=== PATIENT | female | born 1930 | race Caucasian/White ===

== ENCOUNTER 2017-07-16 13:53 | Inpatient (IN) ==
--- NOTE | 2017-07-16 14:56 | Emergency Department Note ---
Herb Razo Manpreet, am scribing for, and in the presence of, Vargas Sebastian MD 14:48. Romulo Razo Charles R, MD, personally performed the services described in this documentation, ascribed by Mike Estevez in my presence, and it is both accurate and complete [phone] . Arrival - Arrival Chief Complaint: Shortness of Breath Stated Complaint: shortness of breath ED Nursing Triage Note: Transfer from [place] for further evaluation of chronic obstructive pulmonary exacerbation and A-fib. c/o shortness of breath onset 2 days ago. +pedal edema. Mode of Arrival: Stretcher Limitations: No Limitations Source: Patient - History of Present Illness HPI Narrative: Pt is a 87 y/o female who is transferred from [place] for further evaluation of COPD exacerbation and A-fib. Pt was in the hospital for the COPD 2 weeks at [place] and states she has not gotten better. Pt also reports of neuropathy in [facility] and has difficulty walking. Pt states she had diarrhea a week ago and caused her to become weak. Pt states she feels like her heart is "jumping back and forth." Pt states she quit smoking cigarettes when she got out of the hospital two weeks ago. No other pains/complaints reproted to the ED. Onset (ago): day(s) (2 days ago) Consistency: constant Severity: moderate Date of Last Menstrual Period: PM Allergies/Adverse Reactions: Allergies Allergy/AdvReac Type Severity Reaction Status Date / Time ciprofloxacin [From Cipro] AdvReac Nausea Verified 07/16/17 14:11 Home Medications: Home Medications Medication Instructions Recorded Confirmed Type Albuterol Sulfate [Ventolin HFA] 2 puff INH Q4H PRN 07/16/17 History Budesonide/Formoterol 160-4.5 2 puff INH BID 07/16/17 History [Symbicort 160-4.5] Citalopram [CeleXA] 20 mg PO DAILY 07/16/17 History Dexlansoprazole [Dexilant] 60 mg PO QAM 07/16/17 History Diphenoxylate/Atrop 2.5-0.025 1 - 2 tablet PO DAILY PRN 07/16/17 History [Lomotil Tab] Furosemide [Furosemide] 20 mg PO DAILY 07/16/17 History Gabapentin [Gabapentin] 600 mg PO QID 07/16/17 History Hydrocodone/Acetaminophen 1 tablet PO BID 07/16/17 History [Hydrocodon-Acetaminophn 10-325] Methyldopa [Methyldopa] 250 mg PO BID 07/16/17 History Potassium Chloride 20 meq PO DAILY 07/16/17 History Ropinirole HCl [Ropinirole HCl] 0.25 mg PO BEDTIME 07/16/17 History Tramadol HCl [Tramadol Tab] 50 mg PO BID PRN 07/16/17 History clonazePAM [Clonazepam] 0.5 mg PO BEDTIME 07/16/17 History Review of System - Review of System 12 point system: reviewed and no additional remarkable complaints except as stated - Review of System Constitutional: Absent: chills, diaphoresis, fever Respiratory: Present: respiratory distress. Absent: cough, wheezing Cardiovascular: Present: palpitations ("Heart jumping back and forth"). Absent : chest pain Gastrointestinal: Absent: abdominal pain, nausea, vomiting, diarrhea Genitourinary female: Absent: dysuria Musculoskeletal: Absent: arm pain, back pain Neurological: Absent: headache, weakness Medical,Surgical,& Family Hx - Social History Smoking Status: Unknown if ever smoked Frequency of Alcohol Use: None Type of Drug Use: None Exam Vital Signs: Vital Signs Temperature 97.9 F 07/16/17 13:53 Pulse Rate 104 H 07/16/17 13:53 Respiratory Rate 20 07/16/17 13:53 Blood Pressure 104/66 07/16/17 13:53 O2 Sat by Pulse Oximetry 90 L 07/16/17 13:53 - General General appearance: alert - Head Head exam: Present: atraumatic, normocephalic, normal inspection - Eye Eye exam: Present: normal appearance, PERRL, EOMI - ENT ENT exam: Present: normal exam, normal oropharynx, mucous membranes moist, TM's normal bilaterally - Neck Neck exam: Present: normal inspection, full ROM, trachea midline. Absent: tenderness - Chest Chest inspection: Present: normal inspection, symmetric chest wall rise. Absent : tenderness - Respiratory Respiratory exam: Present: rhonchi (Bilat rhonchi), wheezes (Expiratory wheezes) , other (Poor effort). Absent: normal lung sounds bilaterally, accessory muscle use, respiratory distress - Cardiovascular Cardiovascular exam: Present: regular rate, normal rhythm, normal heart sounds. Absent: murmur, rubs, gallop - Abdominal Exam Abdominal exam: Present: soft, normal bowel sounds. Absent: distention, tenderness, guarding - Extremities Exam Extremities exam: Present: normal inspection, full ROM. Absent: tenderness - Back Exam Back exam: Present: normal inspection, full ROM - Neurological Exam Neurological exam: Present: alert, oriented X3, CN II-XII intact, reflexes normal - Psychiatric Psychiatric exam: Present: normal affect, normal mood - Skin Skin exam: Present: warm, dry, intact, normal color. Absent: pallor Course - Consultations Consultation #1: Hospitalist will admit patient Time: 14:54 Disposition Clinical Impression: Congestive heart failure, Acute exacerbation of chronic obstructive airways disease, Paroxysmal atrial fibrillation Case discussed with: patient, patient's family Disposition: Still a Patient Condition: Stable Time of Disposition: 14:55
[2017-07-16] MEDS ORDERED: ONDANSETRON 4 MG/2 ML VIAL IV PRN (15:31)
[2017-07-16] MEDS ORDERED: MORPHINE 2 MG/1 ML SYRINGE IV PRN (15:31)
[2017-07-16] MEDS ORDERED: ACETAMINOPHEN 325 MG TABLET PO PRN (15:31)
--- NOTE | 2017-07-16 15:37 | EKG Report ---
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
--- NOTE | 2017-07-16 15:42 | Hospitalist History & Physical ---
Assessment and Plan - Time spent with patient Time spent with patient: Greater than 30 minutes (1) Congestive heart failure Status: Acute Assessment and plan: Admit 07/16/17 (transferred from [facility]) BNP 3676 - start diuretics and ware Patient has had diarrhea x1 week - recent antibiotics - stool for c-diff New Onset AFib (HR 90-100s) CHF Exacerbation - Cardiology Consult COPD Exacerbation - she denies home o2 use: Pulmonary Consult Elevated Troponin (slight 0.008) - serial troponin Repeat EKG in a.m. Repeat A.M. Labs COPD Exac: Duonebs, steroids q 12, Meropenem Discussed with Dr Garcia for further recommendations of care. Current Visit: Yes (2) Acute exacerbation of chronic obstructive airways disease Status: Acute Current Visit: Yes (3) Paroxysmal atrial fibrillation Status: Acute Current Visit: Yes History of Present Illness Chief complaint: SOB, New Onset AFib, COPD exac, CHF exac History of present illness: Ms. Mercedes is a 87 year old white female w/PMHx of COPD, Anemia, CKD (stage III), neuropathy, HTN, CHF presented to the ED as a transfer from [facility] for further evaluation of New Onset AFib (rate 90s-100s), CHF exacerbation, COPD exacerbation and c/o shortness of breath and right sided pain with taking a deep breath. She reports increased weakness and diarrhea x1 week (this occurred after being discharged home from hospital on an antibiotic/ unsure of name). She denies nausea, vomiting, fever, or chills. IN [place] ED: she received Lovenox 60mg, duoneb and steroids 125mg. LABS: WBC 9.06, Creatinine 1.9, GFR 33, Troponin 0.008, BNP 3676. She is unsure of Last GI scope but has a large Hiatal Hernia. She reports quit smoking over a month ago. She denies alcohol or drug use. SurgHx: Cholecystectomy, Hysterectomy, Left hip Fracture repair. PCP: Dr Harpreet Garcia prospecting observer After discussion with Dr Sebastian in the Ed and Dr Garcia with Hospital Medicine, it was agreed to admit patient for further evaluation and treatment. She is a resident of [facility]. She wishes for her code status to be: DNR and family at bedside agreed with discussion and code status. Home Medications Medication Instructions Recorded Confirmed Type Albuterol Sulfate [Ventolin HFA] 2 puff INH Q4H PRN 07/16/17 History Budesonide/Formoterol 160-4.5 2 puff INH BID 07/16/17 History [Symbicort 160-4.5] Citalopram [CeleXA] 20 mg PO DAILY 07/16/17 History Dexlansoprazole [Dexilant] 60 mg PO QAM 07/16/17 History Diphenoxylate/Atrop 2.5-0.025 1 - 2 tablet PO DAILY PRN 07/16/17 History [Lomotil Tab] Furosemide [Furosemide] 20 mg PO DAILY 07/16/17 History Gabapentin [Gabapentin] 600 mg PO QID 07/16/17 History Hydrocodone/Acetaminophen 1 tablet PO BID 07/16/17 History [Hydrocodon-Acetaminophn 10-325] Methyldopa [Methyldopa] 250 mg PO BID 07/16/17 History Potassium Chloride 20 meq PO DAILY 07/16/17 History Ropinirole HCl [Ropinirole HCl] 0.25 mg PO BEDTIME 07/16/17 History Tramadol HCl [Tramadol Tab] 50 mg PO BID PRN 07/16/17 History clonazePAM [Clonazepam] 0.5 mg PO BEDTIME 07/16/17 History Allergies Allergy/AdvReac Type Severity Reaction Status Date / Time ciprofloxacin [From Cipro] AdvReac Nausea Verified 07/16/17 14:11 Medical,Surgical,& Family Hx - Medical History Cardio: History of: Cardiac Dysrhythmia (A-fib), CHF, Hypertension Psychological: History of: Depression Neurology: History of: Peripheral Neuropathy Respiratory: History of: COPD Gastrointestinal: History of: GI Problems (Hiatal Hernia) - Surgical History HEENT Surgeries: Surgical HX of: Eye Surgery Abdominal Surgeries: Surgical HX of: Cholecystectomy - Social History Smoking Status: Former smoker (quit over a month ago) Frequency of Alcohol Use: None Type of Drug Use: None Marital Status: Lives With:: [facility] Functional capacity: wheelchair bound (electric wheelchair; too weak and neuropathy too painful for self-ambulation) 12 point system: reviewed and no additional remarkable complaints except as stated - Constitutional Constitutional: Absent: chills, fever(s), headache(s) - Cardiovascular Cardiovascular: Present: dyspnea, dyspnea on exertion. Absent: edema - Gastrointestinal Gastrointestinal: Present: diarrhea (since being placed on unknown antibiotic about a week ago). Absent: nausea, vomiting Exam - Constitutional Vitals: Period Temp Pulse Resp BP Sys/Arriola Pulse Ox Last 24 Hr 97.9 F-97.9 F 96-111 18-20 104-122/58-75 90-96 General appearance: normal weight, no acute distress - Head Head exam: Present: normal inspection, normocephalic - Eye Eye exam: Present: EOMI Pupils: Present: SYLVIA - Neck Neck exam: Present: normal inspection. Absent: thyromegaly - Respiratory Respiratory exam: Present: rhonchi, wheezes - Cardiovascular Cardiovascular exam: Present: irregular rhythm (afib - new onset (HR 90-100s)) - Extremities Exam Extremities exam: Present: normal inspection, full ROM, other (painful neuropathy; with touch sensation). Absent: edema - Neurological Exam Neurological exam: Present: alert, oriented X3, CN II-XII intact - Psychiatric Psychiatric exam: Present: normal affect, normal mood. Absent: agitated, anxious - Skin Skin exam: Present: normal color, warm, dry Results - Labs Lab Results: I have reviewed the past 24 hour labs Labs: Labs performed at [facility] and I requested records to be scanned into the system for access for review. Significant: BNP 3676 Troponin 0.008 WBC 9.06 Creatinine 1.9 GFR 33
[2017-07-16] MEDS ORDERED: DIPHENOXYLATE/ATROPINE 2.5-0.025 MG TABLET PO PRN (16:39)
[2017-07-16] MEDS ORDERED: BUDESONIDE/FORMOTEROL 160-4.5 INHALER 6 GM INH PRN (16:39)
[2017-07-16] MEDS ORDERED: ZALEPLON 5 MG CAPSULE PO PRN (16:39)
[2017-07-16] MEDS ORDERED: ALBUTEROL 2.5 MG/3 ML NEB RESP TX PRN (16:39)
[2017-07-16] MEDS: methylPREDNISolone SOD SUC 40 MG/1 ML VIAL IV SCH (18:23)
[2017-07-16] MEDS: GABAPENTIN 600 MG TABLET PO SCH ×2 (18:23→21:50)
[2017-07-16] MEDS: ALBUTEROL/IPRATROPIUM 3 ML NEB RESP TX SCH ×2 (19:52→23:59)
[2017-07-16] MEDS: FUROSEMIDE 40 MG/4 ML VIAL IV SCH (21:47)
[2017-07-16] MEDS: METHYLDOPA 250 MG TABLET PO SCH (21:50)
[2017-07-16] MEDS: MEROPENEM 500 MG in SODIUM CHLORIDE 0.9% 50 ML IV SCH (21:50)
[2017-07-16] MEDS: rOPINIRole 0.25 MG TABLET PO SCH (21:50)
[2017-07-16] MEDS: clonazePAM 0.5 MG TABLET PO SCH (21:50)
[2017-07-16] MEDS: NYSTATIN CREAM 15 GM TUBE TOP SCH (22:34)
[2017-07-16] MEDS: ENOXAPARIN 60 MG/0.6 ML SYRINGE SUBCUT SCH (22:35)
[2017-07-17] MEDS: methylPREDNISolone SOD SUC 40 MG/1 ML VIAL IV SCH ×2 (04:42→16:37)
[2017-07-17 04:50] LABS: Hemoglobin 11.7 GM/DL (12.0-16.0); Immature Granulocytes % 0.5 %; Immature Granulocytes Absolute 0.03 #; Lymphocytes # 0.3 10*3/uL (1.4-4.0); Lymphocytes % 5.2 % (21.3-54.2); Mean Corpuscular HGB Conc 31.6 GM/DL (32-36); Mean Corpuscular Hemoglobin 26 PG (27-34); Mean Corpuscular Volume 82.4 FL (87-102); Mean Platelet Volume 10.4 FL (9.6-12.0); Monocytes # 0.1 10*3/uL (0.11-0.8); Monocytes % 1.3 % (1.7-12.7); Neutrophils # 5.5 10*3/uL (1.4-7.4); Platelet Count 249 T/CUMM (130-400); Red Blood Count 4.49 MC/CUMM (3.8-5.5); Red Cell Distribution Width 28.5 % (9.3-17.3); White Blood Count 5.9 T/CUMM (4-12)
[2017-07-17 05:20] LABS: Calcium 8.4 MG/DL (8.5-10.1); Magnesium 2.3 MG/DL (1.8-2.4); Osmolality,Calculated 283.7 MOS/KG (273-304); Potassium 4.4 MMOL/L (3.5-5.1)
[2017-07-17 05:32] LABS: Band Neutrophils 1 % (0-10); Lymphocytes 6 % (20-55); Platelet Estimate Normal; Segmented Neutrophils 90 % (50-85); Total Cells Counted 100
[2017-07-17 05:47] LABS: Risk Ratio 2.42; Thyroid Stimulating Hormone 0.346 uIU/ml (0.358-3.74)
[2017-07-17] MEDS: MEROPENEM 500 MG in SODIUM CHLORIDE 0.9% 50 ML IV SCH ×2 (06:03→18:15)
[2017-07-17] MEDS: ALBUTEROL/IPRATROPIUM 3 ML NEB RESP TX SCH ×3 (07:28→19:47)
--- NOTE | 2017-07-17 07:43 | EKG Report ---
Stationary ECG Study [facility] Test Date: 07/17/2017 7:41:59 AM Pat Name: ELVA ZUNIGA Department: Room: 263 Gender: F Clerk Rating: STANISLAV : 1930 Requested by: Edie Bernal Order Number: [id number] Reading MD: SAY SERRA Intervals [place] Rate: 81 P: 999 [place]: 0 QRS: -44 QRSD: 156 T: -14 QT: 424 QTc: 461 Interpretive Statements ATRIAL FIBRILLATION RIGHT BUNDLE BRANCH BLOCK NON-SPECFIC ST-T CHANGES Electronically Signed On 07-18-17 18:17:51 CDT by SAY SERRA [email or web address]
--- NOTE | 2017-07-17 08:06 | Physician Query Form ---
CLICK EDIT DOCUMENT TO SELECT QUERY ANSWER --> OK --> SIGN Lary Franco RN, CCDS Certified Clinical Second Cutter W) [phone] (f) [phone] [email or web address] PROVIDERS: Make your selection(s) from the choices in EACH section by typing an "x" and enter comments in the comment section. Please use your independent medical judgment in providing your response. This request does not imply that any particular answer is desired or expected. CLINICAL INDICATORS: (Providers should not edit this section) The medical record indicates that the patient was admitted with congestive heart failure (exacerbation), BNP of 498#, and the patient was treated with IV Lasix. Please provide further specificity regarding CHF. ACUITY: (X ) Acute ( ) Chronic ( ) Acute on Chronic ( ) Clinically unable to determine TYPE: ( ) Systolic (HFrEF - heart failure with reduced systolic function/EF) ( X) Diastolic (HFpEF - heart failure with preserved systolic function/EF) ( ) Combined Systolic/Diastolic ( ) Other, please specify: ( ) Clinically unable to determine ( ) Past Medical History of Systolic CHF ( ) Past Medical History of Diastolic CHF ( ) Clinically unable to determine COMMENTS: PLEASE ALSO DOCUMENT RESPONSE IN PROGRESS NOTES AND/OR DISCHARGE SUMMARY Use of terms such as suspected, likely, or probable (associated with a specific diagnosis that is being evaluated, monitored, or treated as if it exists) are acceptable and can be restated in the discharge summary if not ruled out. MTDD
[2017-07-17] MEDS: GABAPENTIN 600 MG TABLET PO SCH ×4 (08:40→20:39)
[2017-07-17] MEDS: METHYLDOPA 250 MG TABLET PO SCH ×2 (08:40→20:39)
[2017-07-17] MEDS: PANTOPRAZOLE 40 MG TABLET PO SCH ×2 (08:41→08:42)
[2017-07-17] MEDS: CITALOPRAM 20 MG TABLET PO SCH (08:41)
[2017-07-17] MEDS: traMADol 50 MG TABLET PO PRN ×2 (08:41→16:42)
[2017-07-17] MEDS: FUROSEMIDE 40 MG/4 ML VIAL IV SCH ×2 (08:42→16:40)
[2017-07-17] MEDS: NYSTATIN CREAM 15 GM TUBE TOP SCH ×2 (08:49→20:40)
--- NOTE | 2017-07-17 08:52 | Cardiology Consult Note ---
Assessment and Plan - Time spent with patient Time spent with patient: Greater than 30 minutes (1) Atrial fibrillation, new onset Status: Acute Assessment and plan: SEE PLAN OF CARE LISTED BELOW. Current Visit: Yes (2) Acute exacerbation of chronic obstructive airways disease Status: Acute Assessment and plan: SEE PLAN OF CARE LISTED BELOW. Current Visit: Yes (3) Hypertension Status: Chronic Assessment and plan: SEE PLAN OF CARE LISTED BELOW. Current Visit: Yes (4) Neuropathy Status: Chronic Assessment and plan: SEE PLAN OF CARE LISTED BELOW. Current Visit: Yes (5) Debility Status: Chronic Assessment and plan: SEE PLAN OF CARE LISTED BELOW. Current Visit: Yes (6) Congestive heart failure Status: Chronic Assessment and plan: SEE PLAN OF CARE LISTED BELOW. Current Visit: No Qualifiers: Congestive heart failure type: unspecified congestive heart failure type Congestive heart failure chronicity: chronic Qualified Code(s): I50.9 - Heart failure, unspecified (7) Former smoker Status: Chronic Assessment and plan: SEE PLAN OF CARE LISTED BELOW. Current Visit: Yes (8) Chronic kidney disease (CKD) Status: Chronic Assessment and plan: SEE PLAN OF CARE LISTED BELOW. Current Visit: Yes Qualifiers: Chronic kidney disease stage: stage 3 (moderate) Qualified Code(s): N18.3 - Chronic kidney disease, stage 3 (moderate) History of Present Illness - Data of Consult Patient: new to practice Consult date: 07/17/17 Requesting Physician: Edie Bernal Primary care physician: Jeffrey Tran - Consult Narrative Reason for consult: new onset afib. 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 Tran Ms. Mercedes is a 87 year old female without known history of coronary artery disease, not routinely followed by cardiology. Resident of [facility]. Cardiac risk factors include: Hypertension, advanced age, former smoker (quit 1 month ago) and sedentary lifestyle. No family history of CAD. Past medical history includes: Cardiomegaly, COPD and neuropathy. Patient reports that she is unable to ambulate. She uses electric wheelchair. Patient has never been seen by carriage feeder in the past. Denies previous stress testing or cardiac catheterization. Patient presented to [facility] with complaints of shortness of breath over the past 2-3 days. She was diagnosed with pneumonia approximately 1 month ago and was hospitalized for 10 days. This has been slow to improve. She has right-sided chest pain that occurs when she takes a deep breath. She has been having this ever since she was diagnosed with pneumonia. This is slowly improving. She does have chronic dyspnea. However, over the last 2-3 days this has been significantly worse. She does have a history of COPD. Does not use home oxygen. Her family at bedside would like for case management to attempt to set this up at discharge. She is also been experiencing heart racing/palpitations over the last 2-3 days. She has had these in the past just not as severe. Never been diagnosed with arrhythmia. Denies fever, chills, nausea, vomiting, abdominal pain, orthopnea, PND and lower extremity swelling. Denies lightheadedness, syncope and frequent falls. She is unable to ambulate and uses electric wheelchair. She is a resident at the [facility] and they felt that she needed to be further evaluated in the emergency department. Upon arrival to the ER, she was noted to be in atrial fibrillation. This is a new diagnosis for her. Therapeutic Lovenox was initiated for stroke prevention. She has been admitted under hospital medicine service. Cardiology consulted for further assistance. Of note, I spent greater than 15 minutes discussing risk and benefits of anticoagulation. She is without contraindications. Denies history of GI bleeding and frequent falls. Patient was seen and examined on the telemetry unit. Family is at bedside. She is without complaints this morning. She reports that she feels much better. She is reasonably well rate controlled this morning. Asymptomatic with her atrial fibrillation. I have added cardioselective beta blockade to assist with rate control as patient does have acute COPD exacerbation. Chads vasc score 5. Patient is currently being anticoagulated with therapeutic Lovenox. This will be continued. I have thoroughly discussed anticoagulation options with the patient and family as she will need chronic anticoagulation at discharge. She is without high bleeding risk. I will further discuss with Dr. Brambila and await his additional recommendations. She is lying flat in bed this morning. No orthopnea. BNP mildly elevated at 498 in the setting of renal insufficiency, creatinine 1.6. I will order chest x-ray and echocardiogram. Agree with IV Lasix. Monitor renal function closely as she does have renal insufficiency. Strict I's and O's and daily weights. Further recommendations to follow per Dr. Brambila. IMPRESSION AND PLAN: 1. NEW ONSET ATRIAL FIBRILLATION - New diagnosis. Patient is reasonably well rate controlled this morning. Asymptomatic. I have added cardioselective beta blockade to assist with rate control as patient does have acute COPD exacerbation. Chads vasc score 5. Patient is currently being anticoagulated with therapeutic Lovenox. This will be continued. I have thoroughly discussed anticoagulation options with the patient and family as she will need chronic anticoagulation at discharge. She is without high bleeding risk. We will check daily BMP and optimize electrolytes. TSH 0.346. Free T4 pending. I will further discuss with Dr. Brambila and await his additional recommendations. 2. ACUTE ON CHRONIC COPD EXACERBATION - 3. HYPERTENSION - Clinically stable. I have added cardioselective beta- blockade to assist with rate control. Monitor blood pressure and adjust accordingly. 4. SEVERE NEUROPATHY - Continue gabapentin. 5. FORMER SMOKER - Reports quitting smoking 1 month ago. 6. DEBILITY - Chronic, stable. Unable to ambulate. He uses electric wheelchair. 7. HISTORY OF CHF - BNP mildly elevated at 498 in the setting of renal insufficiency, creatinine 1.6. I will order chest x-ray and echocardiogram. Agree with IV Lasix. Strict I's and O's and daily weights. 8. CHRONIC KIDNEY DISEASE, STAGE 3 - Daily BMP. CC: Tom Garcia MD - Home Medications and Allergies Home Medications: Home Medications Medication Instructions Recorded Confirmed Type Albuterol Sulfate [Ventolin HFA] 2 puff INH Q4H PRN 07/16/17 07/16/17 History Budesonide/Formoterol 160-4.5 2 puff INH BID PRN 07/16/17 07/16/17 History [Symbicort 160-4.5] Citalopram [CeleXA] 20 mg PO QAM 07/16/17 07/16/17 History Dexlansoprazole [Dexilant] 60 mg PO QAM 07/16/17 07/16/17 History Diphenoxylate/Atrop 2.5-0.025 1 - 2 tablet PO DAILY PRN 07/16/17 07/16/17 History [Lomotil Tab] Furosemide [Furosemide] 20 mg PO QAM 07/16/17 07/16/17 History Gabapentin [Gabapentin] 600 mg PO QID 07/16/17 07/16/17 History Hydrocodone/Acetaminophen 1 tablet PO BID PRN 07/16/17 07/16/17 History [Hydrocodon-Acetaminophn 10-325] Methyldopa [Methyldopa] 250 mg PO BID 07/16/17 07/16/17 History Pantoprazole Tab [Protonix Tab] 40 mg PO QAM 07/16/17 07/16/17 History Potassium Chloride 20 meq PO DAILY 07/16/17 07/16/17 History Ropinirole HCl [Ropinirole HCl] 0.25 mg PO BEDTIME 07/16/17 07/16/17 History Tramadol HCl [Tramadol Tab] 50 mg PO BID PRN 07/16/17 07/16/17 History clonazePAM [Clonazepam] 0.5 mg PO BEDTIME 07/16/17 07/16/17 History predniSONE TAB [PredniSONE] 20 mg PO QAM 07/16/17 07/16/17 History Allergies/Adverse Reactions: Allergies Allergy/AdvReac Type Severity Reaction Status Date / Time ciprofloxacin [From Cipro] AdvReac Nausea Verified 07/16/17 14:11 - Constitutional Constitutional: Present: as per HPI, fatigue, lethargy, malaise, weakness. Absent: chills, fever(s), frequent falls, weight gain, weight loss - Cardiovascular Cardiovascular: Present: chest pain at rest (With deep breath, recent diagnosis of pneumonia 1 month ago.), dyspnea, palpitations. Absent: chest pain with activity, diaphoresis, edema, radiating jaw, neck or arm pain, lightheadedness, orthopnea, PND - Respiratory Respiratory: Present: as per HPI, cough, dyspnea, wheezing, pain on inspiration. Absent: hemoptysis, dyspnea on exertion, snoring, change in phlegm color - Gastrointestinal Gastrointestinal: Present: as per HPI. Absent: abdominal pain, change in bowel habits, coffee ground emesis, dyspepsia, dysphagia, heartburn, hematemesis, hematochezia, melena, nausea, vomiting - Neurological Neurological: Present: as per HPI, abnormal gait. Absent: abnormal speech, behavioral changes, dizziness, frequent falls, headache(s), syncope - Hematologic/Lymphatic Hematologic/Lymphatic: Present: as per HPI. Absent: easy bleeding, easy bruising Medical,Surgical,& Family Hx - Medical History Cardio: History of: CHF, Hypertension Psychological: History of: Depression Neurology: History of: Peripheral Neuropathy Respiratory: History of: COPD Gastrointestinal: History of: GI Problems (Hiatal Hernia) No history of: Gastrointestinal Bleed Musculoskeletal: History of: Musculoskeletal Problems (Neuropathy) - Surgical History HEENT Surgeries: Surgical HX of: Eye Surgery Abdominal Surgeries: Surgical HX of: Cholecystectomy - Social History Smoking Status: Former smoker Frequency of Alcohol Use: None Type of Drug Use: None Marital Status: Lives With:: BEE HIVE Functional capacity: wheelchair bound Physical Examination Vital Signs Temp Pulse Resp BP Pulse Ox 97.9 F 104 H 20 104/66 90 L 07/16/17 13:53 07/16/17 13:53 07/16/17 13:53 07/16/17 13:53 07/16/17 13:53 Exam: General: Appears well with no apparent distress. Pleasant and cooperative. Appears comfortable. HEENT: PERRL, normocephalic, atraumatic. Mucous membranes moist. No jaundice noted. Conjunctiva moist and clear, sclerae anicteric Neck: No JVD/HJR, no thyromegaly or lymphadenopathy noted. Cardiac: Irregular rate and rhythm. No murmur rub or gallop. Lungs: Coarse lung sounds with rhonchi and wheezing throughout. Oxygen via nasal cannula. Abdomen: Soft, bowel sounds normoactive. Nontender and nondistended. No abdominal bruit or thrill noted. No masses noted. Extremities: No clubbing, cyanosis noted. No edema noted. Upper extremity pulses 2+. Lower extremity pulses 2+. Capillary refill less than 3 seconds. Skin: No unusual lesions or rashes. No skin breakdown appreciated. Neuro: Awake, alert and oriented 3. Moves all extremities well without hemiparesis or paralysis. Result/EKG - Labs CBC & BMP: 07/17/17 03:26 07/17/17 03:26 Lab Results: I have reviewed the past 24 hour labs Labs: Laboratory Results - last 24 hr 07/17/17 07/17/17 07/17/17 03:26 03:26 03:26 WBC 5.9 RBC 4.49 Hgb 11.7 L Hct 37.0 MCV 82.4 L MCH 26 L MCHC 31.6 L RDW 28.5 H Plt Count 249 MPV 10.4 Neut % (Auto) 93.0 H Lymph % (Auto) 5.2 L Keith % (Auto) 1.3 L Eos % (Auto) 0.0 Baso % (Auto) 0.0 Neut # (Auto) 5.5 Lymph # (Auto) 0.3 L Keith # (Auto) 0.1 L Eos # (Auto) 0.0 Baso # (Auto) 0.0 Total Counted 100 Immature Gran % 0.5 Nucleated RBC % 0.0 Immature Gran # 0.03 Segmented Neutrophils 90 H Band Neutrophils 1 Lymphocytes 6 L Monocytes 3 Nucleated RBCs # 0.00 Platelet Estimate Normal Immature Plt Fraction 0.0 Sodium 138 Potassium 4.4 Chloride 100 Carbon Dioxide 29 Anion Gap 13.4 BUN 22 H Creatinine 1.60 H GFR Calculation 28 BUN/Creatinine Ratio 13.00 Glucose 198 H Hemoglobin A1c Calculated Osmolality 283.7 Calcium 8.4 L Magnesium 2.3 B-Natriuretic Peptide 498 H Triglycerides Cholesterol LDL Cholesterol VLDL Cholesterol HDL Cholesterol Heart Disease Risk Ratio TSH 3rd Generation 07/17/17 07/17/17 03:26 03:26 WBC RBC Hgb Hct MCV MCH MCHC RDW Plt Count MPV Neut % (Auto) Lymph % (Auto) Keith % (Auto) Eos % (Auto) Baso % (Auto) Neut # (Auto) Lymph # (Auto) Keith # (Auto) Eos # (Auto) Baso # (Auto) Total Counted Immature Gran % Nucleated RBC % Immature Gran # Segmented Neutrophils Band Neutrophils Lymphocytes Monocytes Nucleated RBCs # Platelet Estimate Immature Plt Fraction Sodium Potassium Chloride Carbon Dioxide Anion Gap BUN Creatinine GFR Calculation BUN/Creatinine Ratio Glucose Hemoglobin A1c 5.2 Calculated Osmolality Calcium Magnesium B-Natriuretic Peptide Triglycerides 75 Cholesterol 138 LDL Cholesterol 71.0 VLDL Cholesterol 15.0 HDL Cholesterol 57 Heart Disease Risk Ratio 2.42 TSH 3rd Generation 0.346 L Specialty Discharge - Follow Up or Referrals
[2017-07-17] MEDS ORDERED: PANTOPRAZOLE 40 MG TABLET PO SCH (09:00)
[2017-07-17] MEDS: NEBIVOLOL 10 MG TABLET PO SCH (10:17)
[2017-07-17] MEDS: ENOXAPARIN 60 MG/0.6 ML SYRINGE SUBCUT SCH (10:17)
--- NOTE | 2017-07-17 10:27 | XRay Report ---
XR chest 1V portable Indication: Shortness of breath Comparison: 16 July 2017 Findings: The heart and mediastinum are stable in size and configuration. Hiatal hernia is present, similar to previous study The pulmonary vascularity is normal in caliber. No lung infiltrates, effusions, pneumothorax or other abnormality is demonstrated. Impression: No acute findings or significant changes. PROCEDURE INTERPRETED AT [facility] DEPARTMENT OF RADIOLOGY Final Report Signed by: Dr. Jarrell Cobian
--- NOTE | 2017-07-17 11:00 | EKG Report ---
Stationary ECG Study 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
--- NOTE | 2017-07-17 11:29 | ECHO Report ---
Aleksandra Mercedes Exam Date: 07/17/2017 09:36 Referring Physician: Technologist: Sera Bass Age: 87 Ht (in): 63 Wt (lb): 139 Gender: F Exam Location: [facility] Echo Indications: CHF, paroxysmal, COPD, A fib BP: 111 / 60 HR: 94 Rhythm: Sinus Technical Quality: IMPRESSIONS Technically adequate study 1-2+ left atrial enlargement 1+ concentric LVH Normal LV systolic function with ejection fraction estimated 65% without wall motion normality 1+ aortic, mitral, and tricuspid regurgitation with RVSP 25 mmHg plus RAP Irregular rhythm noted MEASUREMENTS (Male / Female) Normal Values 2D ECHO LV Diastolic Diameter PLAX 3.2 cm 4.2 - 5.9 / 3.9 - 5.3 cm LV Systolic Diameter PLAX 2.2 cm LV Fractional Shortening PLAX 32.0 % IVS Diastolic Thickness 1.1 cm 0.6 - 1.0 / 0.6 - 0.9 cm LVPW Diastolic Thickness 1.1 cm 0.6 - 1.0 / 0.6 - 0.9 cm RV Internal Dim ED PLAX 1.8 cm Aortic Root Diameter 2.3 cm LA Systolic Diameter LX 4.5 cm 3.0 - 4.0 / 2.7 - 3.8 cm DOPPLER TR Peak Velocity 252.0 cm/s TR Peak Gradient 25.4 mmHg FINDINGS Left Ventricle Normal left ventricular cavity size. Mild concentric left ventricular hypertrophy. Left ventricular ejection fraction is estimated a Right Ventricle Normal right ventricular size. Right Atrium Normal right atrial size. Left Atrium Moderately increased left atrial diameter. Mitral Valve Mildly thickened mitral valve with mild mitral regurgitation. Aortic Valve Mild aortic valve sclerosis without stenosis. Trace aortic valve regurgitation. Tricuspid Valve Morphologically normal tricuspid valve. Trace to mild tricuspid valve regurgitation. Tricuspid regurgitation velocities suggest a PAP of 25.4 mmHg + RAP. Pulmonic Valve Morphologically normal pulmonic valve. Pericardium No pericardial effusion. Aorta Normal size aortic root and proximal ascending aorta. Richmond Brambila (Electronically Signed) Final Date: 17 July 2017 11:27
[2017-07-17] MEDS: APIXABAN 2.5 MG TABLET PO SCH ×2 (13:53→20:39)
--- NOTE | 2017-07-17 14:38 | Hospitalist Progress Note ---
Assessment and Plan (1) Acute exacerbation of chronic obstructive airways disease Status: Acute Assessment and plan: The patient will continue treatment of COPD with IV antibiotics, inhaled beta agonist nebulized breathing therapy, and moderate dose IV steroid. Echocardiogram reveals preserved ejection fraction. The patient is now on Eliquis. I anticipate discharge home tomorrow. I reviewed the patient's plan of care with her self and her son at the bedside. Current Visit: Yes (2) Atrial fibrillation, new onset Status: Acute Current Visit: Yes Hospitalist: Subjective Interval history: Ms. Mercedes has less shortness of breath and less chest congestion today. Heart rate has better control. The patient is being treated for COPD exacerbation with IV antibiotics and inhaled beta agonist nebulized therapy and moderate dose steroid. The patient's atrial fibrillation is new onset and is being treated with rate control and anticoagulation. The patient is improving incrementally and I anticipate she will be ready for discharge home tomorrow. Exam - Constitutional Vitals: Period Temp Pulse Resp BP Sys/Arriola Pulse Ox Last 24 Hr 96.7 F-98.5 F 72-113 16-21 101-133/57-78 95-100 General appearance: mild distress - Respiratory Respiratory exam: Present: prolonged expiratory phase - Cardiovascular Cardiovascular exam: Present: irregular rhythm - GI/Abdominal GI/Abdominal exam: Present: normal bowel sounds Results - Labs CBC & BMP: 07/17/17 03:26 07/17/17 03:26 Lab Results: I have reviewed the past 24 hour labs Specialty Discharge - Follow Up or Referrals Follow up with: Richmond Brambila MD [Physician] - 2 Weeks (EKG, CBC, FLP, TSH, FREE T4, CMP)
[2017-07-17] MEDS: rOPINIRole 0.25 MG TABLET PO SCH (20:39)
[2017-07-17] MEDS: clonazePAM 0.5 MG TABLET PO SCH (20:39)
[2017-07-18] MEDS: ALBUTEROL/IPRATROPIUM 3 ML NEB RESP TX SCH ×2 (00:43→07:14)
[2017-07-18] MEDS: methylPREDNISolone SOD SUC 40 MG/1 ML VIAL IV SCH (04:13)
[2017-07-18 05:51] LABS: Basophils % 0.1 % (0.0-0.8); Hematocrit 38.6 VOL% (35.7-47.0); Hemoglobin 12.2 GM/DL (12.0-16.0); Immature Granulocytes % 0.6 %; Immature Granulocytes Absolute 0.07 #; Lymphocytes # 0.6 10*3/uL (1.4-4.0); Lymphocytes % 4.5 % (21.3-54.2); Mean Corpuscular HGB Conc 31.6 GM/DL (32-36); Mean Corpuscular Hemoglobin 26 PG (27-34); Mean Corpuscular Volume 81.4 FL (87-102); Mean Platelet Volume 9.8 FL (9.6-12.0); Monocytes # 0.3 10*3/uL (0.11-0.8); Monocytes % 2.5 % (1.7-12.7); Neutrophils # 11.2 10*3/uL (1.4-7.4); Neutrophils % 92.3 % (38.7-73.9); Platelet Count 252 T/CUMM (130-400); Red Blood Count 4.74 MC/CUMM (3.8-5.5); Red Cell Distribution Width 28.2 % (9.3-17.3); White Blood Count 12.1 T/CUMM (4-12)
[2017-07-18] MEDS: MEROPENEM 500 MG in SODIUM CHLORIDE 0.9% 50 ML IV SCH (06:00)
[2017-07-18 06:18] LABS: Calcium 8.6 MG/DL (8.5-10.1); Magnesium 2.3 MG/DL (1.8-2.4); Osmolality,Calculated 282.5 MOS/KG (273-304); Potassium 3.9 MMOL/L (3.5-5.1)
[2017-07-18 06:47] LABS: Band Neutrophils 1 % (0-10); Giant Platelets Few; Hypochromasia 1+; Lymphocytes 2 % (20-55); Ovalocytes Slight; Platelet Estimate Adequate; Segmented Neutrophils 94 % (50-85); Total Cells Counted 100
[2017-07-18 07:51] VITALS: BP 113/74
--- NOTE | 2017-07-18 08:00 | EKG Report ---
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
[2017-07-18] MEDS: NEBIVOLOL 10 MG TABLET PO SCH (08:47)
[2017-07-18] MEDS: CITALOPRAM 20 MG TABLET PO SCH (08:47)
[2017-07-18] MEDS: PANTOPRAZOLE 40 MG TABLET PO SCH ×2 (08:47→08:50)
[2017-07-18] MEDS: GABAPENTIN 600 MG TABLET PO SCH (08:47)
[2017-07-18] MEDS: traMADol 50 MG TABLET PO PRN (08:47)
[2017-07-18] MEDS: APIXABAN 2.5 MG TABLET PO SCH (08:48)
[2017-07-18] MEDS: FUROSEMIDE 40 MG/4 ML VIAL IV SCH (08:48)
[2017-07-18] MEDS: NYSTATIN CREAM 15 GM TUBE TOP SCH (08:49)
[2017-07-18] MEDS: METHYLDOPA 250 MG TABLET PO SCH (09:31)
--- NOTE | 2017-07-18 10:56 | Discharge Summary ---
Hospital Course - Hospital Course Hospital Course: The patient was admitted to hospital with COPD exacerbation with increased sputum production and without evidence of pneumonia on chest x-ray. The patient was treated with IV antibiotic, inhaled beta agonist nebulized breathing therapy, and moderate dose steroid. The patient's congestion improved and sputum resolved. The patient was awakened and found to have atrial fibrillation. The atrial fibrillation was present at the time of admission. The patient was seen in consultation with Dr. Azevedo. Echocardiogram revealed preserved ejection fraction. He recommended rate control with by systolic and anticoagulation with Eliquis. These were started and the patient tolerated them well she is now ready for discharge home. On the date of discharge, chest has moderate air trapping, minimal wheezing, minimal sputum production. Heart has irregularly irregular rhythm consistent with atrial fibrillation at controlled rate. Abdomen is soft. Patient medications were reconciled upon admission, and again at the time of discharge. The patient was screened for tobacco use and found to be a previous smoker. The patient was given 4 minutes of tobacco avoidance education. The patient's medical decsion maker is themself, and when asked, they asked to be DO NOT RESUSCITATE. Discharge Time was 34 minutes, including final examination, evaluation and planning, education, reconciliation of medications, writing prescriptions, coordinating care with manager rn case, and preparing discharge documentation. - Time spent with patient Time with patient DS: Greater than 30 minutes Diagnosis - Discharge Diagnosis (1) Acute exacerbation of chronic obstructive airways disease Status: Chronic (2) Atrial fibrillation, new onset Status: Chronic Specialty Discharge - Follow Up or Referrals Follow up with: Richmond Brambila MD [Physician] - 2 Weeks (EKG, CBC, FLP, TSH, FREE T4, CMP) Discharge Plan - Discharge Data Disposition: Disch To Home/Self Care Condition at Discharge: Stable Discharge Diet: advance to your usual diet Activity: resume usual activities as tolerated - Discharge Medications New Apixaban [Eliquis] 2.5 mg PO BID #60 tablet Cefuroxime Tab [Ceftin] 250 mg PO BID #10 tablet Nebivolol [Bystolic] 10 mg PO DAILY #60 tablet Continue Citalopram [CeleXA] 20 mg PO QAM clonazePAM [Clonazepam] 0.5 mg PO BEDTIME Ropinirole HCl 0.25 mg PO BEDTIME Potassium Chloride 20 meq PO DAILY Methyldopa 250 mg PO BID Hydrocodone/Acetaminophen [Hydrocodon-Acetaminophn 10-325] 1 tablet PO BID PRN PRN Reason: Pain Furosemide 20 mg PO QAM Diphenoxylate/Atrop 2.5-0.025 [Lomotil Tab] 1 - 2 tablet PO DAILY PRN PRN Reason: Diarrhea Dexlansoprazole [Dexilant] 60 mg PO QAM Albuterol Sulfate [Ventolin HFA] 2 puff INH Q4H PRN PRN Reason: Shortness Of Breath predniSONE TAB [PredniSONE] 20 mg PO QAM Budesonide/Formoterol 160-4.5 [Symbicort 160-4.5] 2 puff INH BID PRN PRN Reason: Shortness Of Breath/Wheezing Tramadol HCl [Tramadol Tab] 50 mg PO BID PRN PRN Reason: Pain Gabapentin 600 mg PO QID Pantoprazole Tab [Protonix Tab] 40 mg PO QAM - Follow Up or Referral Follow Up: Richmond Brambila MD [Physician] - 2 Weeks (EKG, CBC, FLP, TSH, FREE T4, CMP) - Forms/Instructions Instructions: Atrial Fibrillation (GEN), Heart Healthy Diet (GEN), Chronic Obstructive Pulmonary Disease (GEN) Exam - Constitutional Vitals: Period Temp Pulse Resp BP Sys/Arriola Pulse Ox Last 24 Hr 97 F-98.2 F 69-87 16-20 108-136/61-74 92-99 Discharge Results Procedures and tests throughout hospitalization: Pending Orders 07/16/17 15:38 Sputum Culture and Gram Stain Routine 07/19/17 04:00 BMP w/ Mg [Basic Metabolic Panel w/Mg] IN AM CBC [Comp Blood Count Auto Diff] IN AM 07/20/17 04:00 BMP w/ Mg [Basic Metabolic Panel w/Mg] IN AM CBC [Comp Blood Count Auto Diff] IN AM Labs on day of discharge: Labs from last 24 hours 07/18/17 07/18/17 05:36 05:36 WBC 12.1 H D RBC 4.74 Hgb 12.2 Hct 38.6 MCV 81.4 L MCH 26 L MCHC 31.6 L RDW 28.2 H Plt Count 252 MPV 9.8 Neut % (Auto) 92.3 H Lymph % (Auto) 4.5 L Parmer % (Auto) 2.5 Eos % (Auto) 0.0 Baso % (Auto) 0.1 Neut # (Auto) 11.2 H Lymph # (Auto) 0.6 L Parmer # (Auto) 0.3 Eos # (Auto) 0.0 Baso # (Auto) 0.0 Total Counted 100 Immature Gran % 0.6 Nucleated RBC % 0.0 Immature Gran # 0.07 Segmented Neutrophils 94 H Band Neutrophils 1 Lymphocytes 2 L Monocytes 3 Nucleated RBCs # 0.00 Platelet Estimate Adequate Giant Platelets Few Immature Plt Fraction 0.0 Hypochromasia 1+ Ovalocytes Slight Sodium 139 Potassium 3.9 Chloride 100 Carbon Dioxide 33 H Anion Gap 9.9 BUN 23 H Creatinine 1.40 H GFR Calculation 33 BUN/Creatinine Ratio 16.00 Glucose 139 H Calculated Osmolality 282.5 Calcium 8.6 Magnesium 2.3 DS: Provider Date of admission: 07/16/17 14:49 Primary care physician: . 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
[2017-07-18] MEDS ORDERED: POTASSIUM CHLORIDE 20 MEQ TABLET PO SCH (12:00)
== END 2017-07-18 11:56 | disposition home or self-care (01) | DRG 291 ==
LOC: EDUNIT# → N.ED 13:53 → N.EDINP 14:49 → N.TELES 16:43
PROVIDERS: ADMIT Internal Medicine; ATTEND Internal Medicine